=== PATIENT | female | born 1945 | race Caucasian/White ===

== ENCOUNTER → 2017-11-12 | Outpatient (CLI) | payer MEDICARE, BC ==
[~2017-11-12] MED LIST: ASPIRIN 32325 MG/TAB PO; ASPIRIN E.C. 8181 MG PO; ATIVAN 1MG T1 MG/TAB PO; CALCIUM WITH VIT D PO; CALCIUM/MAGNESI1 T14 PO; CELEXA 20MG20 MG/TAB PO; COUMADIN 1MG1 MG/TAB PO; ENBREL50 MG/ML SC; EPA1000 MG PO; FERROUS SU325 MG/TAB PO; FOLIC ACID 40400 MCG PO; LISINOPRIL HCTZ1 TAB PO; LODINE XL400 MG PO; LORTAB 7.5/5001 TAB PO; LUTEIN20 M1 PO; LUTEIN20 MG PO; MAALOX PLUS 3030 ML PO; MULTIPLE VITAMI1 CAP PO; NORCO 325 MG-7.1 TAB PO; OMEPRAZOLE D/R20 MG PO; OXY IR5 MG PO; PRINZIDE 12.5 M1 TAB PO; ULTRAM 50MG TAB50 MG PO; VITAMIN C PUR1000 MG PO; VITAMIN C500 MG PO
[2017-11-12 15:06] LABS: HIV 1/2 Antibodies Non-Reactive; HIV-1p24 Antigen Non-Reactive
== END ==
LOC: COL.LAB 13:44
PROVIDERS: Orthopaedic Surgery
DX: Z01.812 Encounter for preprocedural laboratory examination (principal); M16.11 Unilateral primary osteoarthritis, right hip

== ENCOUNTER 2019-02-03 06:31 | Day surgery (SDC) | payer MEDICARE, BC ==
[~2019-02-03] VITALS: Ht 167.6 cm; Wt 101.5 kg
[~2019-02-03 06:31] MED LIST changes: +00186-0370-20 IH; +ALBUTEROL0.83 MG/ML IH; +ARAVA 20MG TABL20 MG PO; +COZAAR 25MG25 MG/TAB PO; +FLONASE SENSIM9.9 ML NS; +FOLIC ACID0.4 MG PO; +HCTZ12.5TAB PO; +IRON TABLETS325 MG PO; +LASIX 20MG TABL20 MG PO; +LODINE500 MG PO; +MULTIPLE VITAMI1 TA5 PO; +PREDNISONE 2.52.5 MG PO; +PRILOSEC 20MG20 MG PO; +Patient's Own Medica IH; +ROXICODONE 55 MG/TAB PO; +SPIRIVA RE2.5 MCG/Ac IH; +TYLENOL 500MG500 MG PO; +VITAMINC1000TA PO; +XARELTO10 MG PO
[2019-02-03 07:30] LABS: INR 1.2 (0.8-3.0); PROTHROMBIN TIME 13.8 SECONDS (9.7-12.8)
[2019-02-03] MEDS ORDERED: COUMADIN4 MG PO (07:55)
[2019-02-03] MEDS ORDERED: LASIX 40MG TABL40 MG PO (07:56)
[2019-02-03] MEDS ORDERED: K-TAB10 PO (07:57)
[2019-02-03 08:20] VITALS: BP 128/52; PULSE 60; TEMP 97.6
[2019-02-03 11:00] VITALS: BP 140/62; PULSE 84; TEMP 98
[2019-02-03 11:15] VITALS: BP 149/64; PULSE 80
[2019-02-03 11:30] VITALS: BP 152/60; PULSE 81
[2019-02-03 11:45] VITALS: BP 143/53; PULSE 80
--- NOTE | 2019-02-03 13:43 | NUR ---
PT RETURNED FROM PACU PER CART INTO BAY #1. PT ALERT AND ORIENTATED, SLEEPY, RESPONDS TO NAME. LEFT SHOULDER DRESSING DRY AND INTACT. RATES PAIN AT A 1 ON 0-10 SCALE. STATES QUALITY OF PAIN IN A 'BURNING SENSATION.' LUNGS CLEAR, HRR, BOWEL SOUNDS PRESENT. CALL LIGHT IN REACH.
--- NOTE | 2019-02-03 13:51 | NUR ---
PT TOLERATING FOOD AND FLUIDS WITHOUT NAUSEA. EATING CRACKERS AND SPRITE. DRESSING DRY AND INTACT. SHOULDER SLING IS ON AND INTACT AND ELEVATED WITH WEDGE SUPPORT. DAUGHTER AT BEDSIDE, CALL LIGHT IN REACH.
--- NOTE | 2019-02-03 13:55 | NUR ---
PT REQUESTING COFFEE. DENIES PAIN, TOLERATED FOOD AND FLUIDS. DISCHARGE INSTRUCTIONS GIVEN TO PT AND DAUGHTER. VOICES UNDERSTANDING. SCRIPT GIVEN, QUESTIONS ANSWERED. IV DC'D PER RIGHT HAND, PT TOLERATED WELL. LEFT SHOULDER DRESSING DRY, SLING INTACT. PT DISCHARGED TO FAMILY VEHICLE, DAUGHTER IN LAW AND DAUGHTER PRESENT.
== END 2019-02-03 12:30 | disposition home or self-care (01) ==
LOC: SDCO 06:31
PROVIDERS: Orthopaedic Surgery
DX: I48.91 Unspecified atrial fibrillation (principal); X58.XXXA Exposure to other specified factors, initial encounter; J44.9 Chronic obstructive pulmonary disease, unspecified; F41.9 Anxiety disorder, unspecified; M81.0 Age-related osteoporosis without current pathological fracture; G47.30 Sleep apnea, unspecified; M06.9 Rheumatoid arthritis, unspecified; Z79.01 Long term (current) use of anticoagulants; Z95.2 Presence of prosthetic heart valve; Z88.1 Allergy status to other antibiotic agents; Z88.0 Allergy status to penicillin; Z88.2 Allergy status to sulfonamides; Z88.8 Allergy status to other drugs, medicaments and biological substances; Z79.899 Other long term (current) drug therapy; Z79.82 Long term (current) use of aspirin; Z96.642 Presence of left artificial hip joint; Z96.653 Presence of artificial knee joint, bilateral; Z95.0 Presence of cardiac pacemaker; Z80.3 Family history of malignant neoplasm of breast; Z80.41 Family history of malignant neoplasm of ovary; Z83.3 Family history of diabetes mellitus; Z82.49 Family history of ischemic heart disease and other diseases of the circulatory system; Z82.3 Family history of stroke; Z80.7 Family history of other malignant neoplasms of lymphoid, hematopoietic and related tissues
CPT/HCPCS: C1713; J1100; J1720; J1885; J2250; J2405; J2704; J3010; J7120